=== PATIENT | female | born 1940 | race Caucasian/White ===

== ENCOUNTER 2022-07-15 13:08 | Emergency (ER) | payer MEDICARE, OTHER, SELFPAY ==
[2022-07-15 13:15] VITALS: BP 176/83; PULSE 77; RESP 18; TEMP 36.9; O2SAT 96; BMI 25.0
--- NOTE | 2022-07-15 13:27 | DI.RAD.S_ITS ---
PROCEDURE: XR HIP W PEL IF DONE LT 2V INDICATIONS: r/o fx TECHNIQUE: AP pelvis with lateral view(s) of the left hip(s). COMPARISON: [facility] ([place]), CR, XR HIP W PEL IF DONE RT 2V, 07/10/2022, 9:31. FINDINGS: Bones: No fractures or dislocations. Pelvic ring appears intact. No suspicious bony lesions. Soft tissues: The visualized bowel gas pattern is normal. No suspicious soft tissue calcifications. IMPRESSION: No evidence acute bony abnormality of the pelvis and left hip. If clinical suspicion and/or symptoms persist, further assessment with repeat plain films, or advanced imaging (e.g., CT, MRI, or bone scan) may be helpful for further assessment. Dictated by: David Melendez M.D. on 07/15/2022 at 14:16 Approved by: David Melendez M.D. on 07/15/2022 at 14:17
--- NOTE | 2022-07-15 13:27 | DI.RAD.S_ITS ---
PROCEDURE: XR KNEE LT 3V INDICATIONS: r/o fx TECHNIQUE: 3 views of the knee were acquired. COMPARISON: None. FINDINGS: Bones: Expected appearance of total left knee arthroplasty. No evidence of hardware failure or loosening. No fractures or dislocations. No suspicious bony lesions. Soft tissues: Small joint effusion. No suspicious soft tissue calcifications. IMPRESSION: Expected appearance of total left knee arthroplasty. Small knee joint effusion. Dictated by: David Melendez M.D. on 07/15/2022 at 14:17 Approved by: David Melendez M.D. on 07/15/2022 at 14:17
--- NOTE | 2022-07-15 13:27 | DI.RAD.S_ITS ---
PROCEDURE: XR FEMUR LT MIN 2V INDICATIONS: r/o fx TECHNIQUE: AP and lateral views of the femur were acquired. COMPARISON: [facility], [place], XR HIP W PEL IF DONE LT 2V, 07/15/2022, 13:36. [facility], [place], XR KNEE LT 3V, 07/15/2022, 13:36. FINDINGS: Bones: Expected appearance of total left knee arthroplasty with no evidence of hardware failure or loosening. No fractures or dislocations. No suspicious bony lesions. Soft tissues: No suspicious soft tissue calcifications or masses. Small knee joint effusion. IMPRESSION: No evidence acute bony abnormality of the left femur Dictated by: David Melendez M.D. on 07/15/2022 at 14:15 Approved by: David Melendez M.D. on 07/15/2022 at 14:16
[2022-07-15] MEDS: KETOROLAC 30 MG/ML VIAL IM (15:15)
[2022-07-15] MEDS: OXYCODONE/ACETAMINOPHEN 5/325 TABLET 1 TAB PO (15:15)
[2022-07-15 15:35] VITALS: BP 171/79; PULSE 78; RESP 18; O2SAT 95
--- NOTE | 2022-07-15 16:20 | ED_ITS ---
HPI - Fall <ANGIE Bran - Last Filed: 07/15/22 16:29> General Chief Complaint: Fall Stated Complaint: GLF in a boat l hip pain Time Seen by Provider: 07/15/22 15:01 Source: patient and EMS Mode of arrival: EMS History of Present Illness HPI Narrative: 81-year-old female, nonsmoker, presents emergency department after falling on the shuttle boat earlier today. Patient states that she lost her balance and fell landing on her left hip. Patient is on her way to vacation with her . Patient denies hitting her head or any loss of consciousness. Patient able to stand with minimal discomfort. Patient denies any bruising or breaks in skin. Related Data Home Medications Medication Instructions Recorded Confirmed atorvastatin 10 mg tablet 10 mg PO DAILY 07/10/22 07/10/22 levothyroxine 100 mcg tablet 100 mcg PO DAILY 07/10/22 07/10/22 (Synthroid) lisinopril 20 mg tablet 20 mg PO DAILY 07/10/22 07/10/22 metformin 1,000 mg tablet 1,000 mg PO DAILY 07/10/22 07/10/22 omeprazole 20 mg capsule,delayed 20 mg PO DAILY 07/10/22 07/10/22 release Previous Rx's Medication Instructions Recorded gabapentin 300 mg capsule 300 mg PO TID #30 caps 07/10/22 naproxen 500 mg tablet 500 mg PO BID #30 tabs 07/10/22 oxycodone-acetaminophen 5 mg-325 1 tab PO Q8H PRN pain #10 tabs 07/15/22 mg tablet (Percocet) Allergies Allergy/AdvReac Type Severity Reaction Status Date / Time No Known Drug Allergies Allergy Verified 07/10/22 08:55 Review of Systems <ANGIE Bran - Last Filed: 07/15/22 16:29> Review of Systems Narrative: Narrative: GENERAL: Denies chills, fatigue, fever, sweats. See HPI HEENT: Denies sinus pain, ear pain, sore throat, difficulty swallowing, dizziness. RESPIRATORY: Denies dyspnea, cough, wheezing, sputum. CARDIOVASCULAR: Denies chest pain, palpitations, edema. GASTROINTESTINAL: Denies nausea, vomiting, abdominal pain, diarrhea, constipation. : Denies dysuria, frequency, incontinence, hematuria, urinary retention, flank pain. MSK: Denies weakness. Endorses left hip and lateral leg pain. SKIN: Denies rash, skin lesions, or pruritis. NEUROLOGIC: Denies weakness, dizziness, headache, numbness, confusion. PSYCHIATRIC: No concerning psychosocial issues. Patient History <ANGIE Bran - Last Filed: 07/15/22 16:29> Social History Smoking Status: Never smoker Smoking Status: Never smoker alcohol intake frequency: a few times a month Substance Use Type: does not use Exam <ANGIE Bran - Last Filed: 07/15/22 16:29> Narrative Exam Narrative: Exam Narrative: GENERAL: This is a well-nourished, well-developed patient, in no acute distress HEAD: Atraumatic. Normocephalic. EYES: Pupils equal round and reactive. Extraocular motions intact. No scleral icterus, injection or drainage. CARDIOVASCULAR: Regular rate and rhythm without murmurs, peripheral pulses intact, cap refill <2 sec. RESPIRATORY: Breath sounds equal and clear bilaterally. No wheezes, rales, or rhonchi. No cough. No increased respiratory effort. No accessory muscle use. GASTROINTESTINAL: Abdomen soft, non-tender, nondistended without guarding or rebound. No suprapubic pain. MSK: Moves all extremities. Normal range of motion, no clubbing or edema. Neurovascularly intact. NEURO: A&O x 3. SKIN: Warm, dry, no rashes or lesions noted. Initial Vital Signs Initial Vital Signs: Vital Signs Temperature 98.5 F 07/15/22 13:15 Pulse Rate 77 07/15/22 13:15 Respiratory Rate 18 07/15/22 13:15 Blood Pressure 176/83 H 07/15/22 13:15 Pulse Oximetry 96 07/15/22 13:15 Oxygen Delivery Method 07/15/22 13:15 Reviewed Back/Spine/Pelvis Other: Hip: There is no obvious deformity. There is no redness, swelling or wound. Able to bear weight on each leg independently. Non-tender over the ischial spine or SI joint. Mild tenderness over the greater trochanter. Active flexion and extension as well as lateral excursion are limited due to pain. There is mild pain along the ilio-tibial band. Internal and external rotation is within normal range <DO Lucia Stanton Last Filed: 07/18/22 10:27> Initial Vital Signs Initial Vital Signs: Vital Signs Temperature 98.5 F 07/15/22 13:15 Pulse Rate 77 07/15/22 13:15 Respiratory Rate 18 07/15/22 13:15 Blood Pressure 176/83 H 07/15/22 13:15 Pulse Oximetry 96 07/15/22 13:15 Oxygen Delivery Method 07/15/22 13:15 Course <ANGIE Bran - Last Filed: 07/15/22 16:29> Orders Ordered: Discontinued Medications Ketorolac Tromethamine (Ketorolac 30 Mg/Ml Vial) 30 mg IM NOW ONE Stop: 07/15/22 15:07 Last Admin: 07/15/22 15:15 Dose: 30 mg Documented By: PATRICIA Oxycodone/Acetaminophen (Oxycodone/Acetaminophen 5/325 Tablet) 1 tab PO NOW ONE Stop: 07/15/22 15:07 Last Admin: 07/15/22 15:15 Dose: 1 tab Documented By: CTS Vital Signs Vital signs: Vital Signs - 8 hr 07/15/22 13:15 07/15/22 15:35 Temperature 98.5 F Pulse Rate 77 78 Respiratory Rate 18 18 Blood Pressure 176/83 H 171/79 H Pulse Oximetry 96 95 Oxygen Delivery Method Room Air Room Air <Carol Vo DO - Last Filed: 07/18/22 10:27> Orders Ordered: Discontinued Medications Ketorolac Tromethamine (Ketorolac 30 Mg/Ml Vial) 30 mg IM NOW ONE Stop: 07/15/22 15:07 Last Admin: 07/15/22 15:15 Dose: 30 mg Documented By: PATRICIA Oxycodone/Acetaminophen (Oxycodone/Acetaminophen 5/325 Tablet) 1 tab PO NOW ONE Stop: 07/15/22 15:07 Last Admin: 07/15/22 15:15 Dose: 1 tab Documented By: CTS Vital Signs Vital signs: Vital Signs - 8 hr 07/15/22 13:15 07/15/22 15:35 Temperature 98.5 F Pulse Rate 77 78 Respiratory Rate 18 18 Blood Pressure 176/83 H 171/79 H Pulse Oximetry 96 95 Oxygen Delivery Method Room Air Room Air MDM - Fall <ANGIE Bran - Last Filed: 07/15/22 16:29> Differential Diagnosis Differential diagnosis: Likely other (Fall and left hip pain) Imaging Data Extremity x-ray #1: Radiologist's Impression: [address] [address] XRay Report Signed Patient: Celine Hanson MR#: [id number] : 1940 Acct:[id number] Age/Sex: 81 / F Date of Service: 07/15/22 Loc: ED Accession Number: [id number] ?? Procedure: XR femur LT min 2V Ordering Provider: Carol Vo D.O. PROCEDURE:? XR FEMUR LT MIN 2V ? INDICATIONS:? r/o fx ? TECHNIQUE:? AP and lateral views of the femur were acquired.? ? COMPARISON:? [facility], [place], XR HIP W PEL IF DONE LT 2V, 07/15/2022, 13:36.? [facility], [place], XR KNEE LT 3V, 07/15/2022, 13:36. ? FINDINGS:? ? Bones:? Expected appearance of total left knee arthroplasty with no evidence of hardware failure or loosening.? No fractures or dislocations.? No suspicious bony lesions.? ? Soft tissues:? No suspicious soft tissue calcifications or masses.? Small knee joint effusion. ? IMPRESSION:? No evidence acute bony abnormality of the left femur ? ? Dictated by: David Melendez M.D. on 07/15/2022 at 14:15 ? ? Approved by: David Melendez M.D. on 07/15/2022 at 14:16 ? Extremity x-ray #2: Radiologist's Impression: [address] [address] XRay Report Signed Patient: Celine Hanson MR#: [id number] : 1940 Acct:[id number] Age/Sex: 81 / F Date of Service: 07/15/22 Loc: ED Accession Number: [id number] ?? Procedure: XR hip w pel if done LT 2V Ordering Provider: Carol Vo D.O. PROCEDURE:? XR HIP W PEL IF DONE LT 2V ? INDICATIONS:? r/o fx ? TECHNIQUE:? AP pelvis with lateral view(s) of the left hip(s).? ? COMPARISON:? [facility] ([place]), CR, XR HIP W PEL IF DONE RT 2V, 07/10/2022, 9:31. ? FINDINGS:? ? Bones:? No fractures or dislocations.? Pelvic ring appears intact.? No suspicious bony lesions.? ? Soft tissues:? The visualized bowel gas pattern is normal.? No suspicious soft tissue calcifications.? ? ? IMPRESSION:? No evidence acute bony abnormality of the pelvis and left hip. ? If clinical suspicion and/or symptoms persist, further assessment with repeat plain films, or advanced imaging (e.g., CT, MRI, or bone scan) may be helpful for further assessment. ? Dictated by: David Melendez M.D. on 07/15/2022 at 14:16 ? ? Approved by: David Melendez M.D. on 07/15/2022 at 14:17 ? Extremity x-ray #3: Radiologist's Impression: [address] [address] XRay Report Signed Patient: Celine Hanson MR#: [id number] : 1940 Acct:[id number] Age/Sex: 81 / F Date of Service: 07/15/22 Loc: ED Accession Number: [id number] ?? Procedure: XR knee LT 3V Ordering Provider: Carol Vo D.O. PROCEDURE:? XR KNEE LT 3V ? INDICATIONS:? r/o fx ? TECHNIQUE:? 3 views of the knee were acquired.? ? COMPARISON:? None. ? FINDINGS:? ? Bones:? Expected appearance of total left knee arthroplasty.? No evidence of hardware failure or loosening.? No fractures or dislocations.? No suspicious bony lesions.? ? Soft tissues:? Small joint effusion.? No suspicious soft tissue calcifications.? ? ? IMPRESSION:? Expected appearance of total left knee arthroplasty.? Small knee joint effusion. ? ? Dictated by: David Melendez M.D. on 07/15/2022 at 14:17 ? ? Approved by: David Melendez M.D. on 07/15/2022 at 14:17 ? MDM Narrative Medical decision making narrative: 81-year-old female that was brought into the emergency department after falling on a boat earlier today. X-rays were all negative and assessment was unremarkable. Recommended hot or cold compresses to the affected site, ibuprofen or Tylenol as needed. Since patient is going on vacation, will provide a short course of pain medication. Since patient is not able to go to the pharmacy immediately, due to no transportation, will give a dose of Toradol and pain medications in the ED. Discussed plan of care and return precautions with patient and , who were agreeable with course of action. Discharge Plan Departure Patient Disposition: Home Clinical Impression: Fall Activity Restrictions/Additional Instructions: *You have been diagnosed with left hip pain secondary to a fall. Your x-rays were all negative and my assessment was unremarkable. You will be sore for the next few days so please use ibuprofen as needed for discomfort. We have given you a injection of a NSAID today, so please do not take anymore ibuprofen or Aleve today. I will send you home with a prescription for a pain medications you may fill and use as needed. For any worsening symptoms, such as inability to walk, intolerable pain, chest pain or difficulty breathing, please return to the emergency department. Otherwise, please follow-up with your family doctor as needed. *What to do: *Please continue to take your regular medications as directed. [ ] New medication prescriptions sent to your pharmacy: [ ] [x ] New medication written as a paper prescription [ ] No new medications given *Please follow up with your primary care provider in 2-3 days, call for an appointment. Let them know you were seen in the Emergency Department and that we ask that you be seen in follow up. We will electronically transmit a record of today's note if your PCP is in our system *If you do not have a primary care provider please contact the [facility] Resource line at [phone]. They will ask some questions about your medical history and help get you set up with a doctor in the community. ? Return to ER if you should have any new, worsening or concerning symptoms, such as worsening pain, severe headache, confusion, chest pain, difficulty breathing, fever greater than 101 F, shaking chills, persistent vomiting to the point that you cannot drink fluids, or other new or worsening symptoms. Prescriptions: New oxycodone-acetaminophen [Percocet] 5-325 mg tablet 1 tab PO Q8H PRN (Reason: pain) Qty: 10 0RF No Action levothyroxine [Synthroid] 100 mcg tablet 100 mcg PO DAILY lisinopril 20 mg tablet 20 mg PO DAILY omeprazole 20 mg capsule,delayed release(DR/EC) 20 mg PO DAILY atorvastatin 10 mg tablet 10 mg PO DAILY metformin 1,000 mg tablet 1,000 mg PO DAILY gabapentin 300 mg capsule 300 mg PO TID Qty: 30 0RF naproxen 500 mg tablet 500 mg PO BID Qty: 30 0RF Rx Instructions: Take with food. Do not combine with other nsaids Referrals: Trista Scott PA-C [Primary Care Provider] - Visit Report Forms: Patient Portal/API <Carol Vo DO - Last Filed: 07/18/22 10:27> Cosign ED Attending Cosignature Attestation: I was immediately available in the department for consultation. Documentation has been reviewed.
== END 2022-07-15 15:36 | disposition home or self-care (01) ==
PROVIDERS: Emergency Provider Registered Nurse; PCP Physician Assistant
DX: M25.552 Pain in left hip (principal); W19.XXXA Unspecified fall, initial encounter
CPT/HCPCS: 73502; 73552; 73562; 96372; 99283; J1885